=== PATIENT | female | born 1990 | race Caucasian/White ===

== ENCOUNTER 2024-02-26 20:20 | Emergency (ER) | payer SELFPAY ==
[~2024-02-26] VITALS: Ht 165.1 cm; Wt 69.0 kg
[2024-02-26 21:06] VITALS: TEMP 98.2; O2SAT 99
[2024-02-26] MEDS ORDERED: METOCLOPRAMIDE HCL 10MG/2ML VIAL IM ONE (21:15)
[2024-02-26] MEDS ORDERED: DEXAMETHASONE 10 MG/ML VIAL IM ONE (21:15)
[2024-02-26] MEDS ORDERED: KETOROLAC 15MG/ML VIAL IM ONE (21:15)
[2024-02-27 00:51] VITALS: BP 121/74; PULSE 62; RESP 12; O2SAT 98
== END 2024-02-27 00:54 | disposition home or self-care (01) ==
LOC: ER 20:20
DX: G43.909 Migraine, unspecified, not intractable, without status migrainosus (principal)
CPT/HCPCS: 99281